=== PATIENT | male | born 1970 | race Caucasian/White ===

== ENCOUNTER 2020-10-25 20:51 | Emergency (ER) | payer MEDICAID ==
[~2020-10-25] VITALS: Ht 170.2 cm; Wt 133.8 kg
--- NOTE | 2020-10-25 20:55 | NUR ---
PT TO BED 7 FOR EVALUATION.
--- NOTE | 2020-10-25 20:59 | NUR ---
PT AAO AND AMBULATORY REPORTING THAT HE HAD A SYNCOPAL EPISODE TODAY IN THE RESTROOM. PT REPORTS THAT HE DOES NOT HAVE ANY MEDICAL PROBLEMS AND THAT HE WAS FEELING FINE ALL DAY. PT DENIES ANY PAIN CURRENTLY.
[2020-10-25 21:00] VITALS: BP_SYST 140
--- NOTE | 2020-10-25 21:01 | NUR ---
Dr. Gonzales bedside for pt eval
--- NOTE | 2020-10-25 21:02 | NUR ---
EKG performed at BS by Karin LO. Physician given copy of EKG for review.
[2020-10-25] MEDS ORDERED: NACL 0.9% 1,000 ML IV ONE (21:30)
[2020-10-25 21:43] LABS: BASOPHILS % (AUTO) 0.8 % (0.0-2.0); EOSINOPHILS % (AUTO) 0.5 % (0.0-4.0); HEMATOCRIT 32.4 % (36-54); HEMOGLOBIN 10.6 g/dL (14.0-18.0); LYMPHOCYTES # (AUTO) 1.5 K/uL (1.0-5.5); LYMPHOCYTES % (AUTO) 27.5 % (20.5-51.5); MEAN CORPUSCULAR HEMOGLOBIN 25 pg (27-31); MEAN CORPUSCULAR HGB CONC 33 % (32-36); MEAN CORPUSCULAR VOLUME 76 fL (79.0-98.0); MONOCYTES # (AUTO) 0.6 K/uL (0.0-1.0); MONOCYTES % (AUTO) 10.1 % (1.7-9.3); NEUTROPHILS # (AUTO) 3.4 K/uL (1.8-7.7); NEUTROPHILS % (AUTO) 61.1 % (40.0-70.0); PLATELET COUNT (AUTO) 194 K/uL (130-430); RED BLOOD CELL COUNT(AUTO) 4.28 MIL/uL (4.2-6.2); RED CELL DISTRIBUTION WIDTH 19.1 % (9.0-15.0); WHITE BLOOD COUNT (AUTO) 5.5 K/uL (4.8-10.8)
[2020-10-25 21:55] LABS: ANION GAP 9 (5-15); CALCIUM 8.2 mg/dL (8.4-11.0); CHLORIDE 92 mmol/L (98-107); CREATININE 0.88 mg/dL (0.55-1.30); GLUCOSE 102 mg/dL (70-99); POTASSIUM 3.7 mmol/L (3.5-5.1); SODIUM SERUM 127 mmol/L (136-145); UREA NITROGEN, BLOOD 4 mg/dL (8-21)
[2020-10-25 21:56] LABS: GFR AFRICAN AMERICAN 119 mL/min (>90)
[2020-10-25 22:04] LABS: ALANINE AMINOTRANSFERASE 115 U/L (12-78); ALBUMIN 3.9 g/dL (3.4-4.8); ALCOHOL, BLOOD 337 mg/dL (<10); ASPARTATE AMINOTRANSFERASE 175 U/L (10-37); TOTAL BILIRUBIN 0.5 mg/dL (0.0-1.0)
--- NOTE | 2020-10-25 22:13 | NUR ---
VSS no s/s of acute distress Resting on gurney
[2020-10-25 22:38] LABS: CREATINE KINASE MB 5.4 ng/mL (0-3.6)
--- NOTE | 2020-10-25 23:14 | NUR ---
Resting comfortable on gurney rails up
--- NOTE | 2020-10-26 | NUR ---
VSS no s/s of acute distress Resting on gurney rails up
[2020-10-26 00:19] LABS: BILIRUBIN,URINE NEGATIVE (NEGATIVE); BLOOD, URINE NEGATIVE (NEGATIVE); CLARITY/URINE CLEAR (CLEAR); COLOR,URINE YELLOW (YELLOW); GLUCOSE,URINE NEGATIVE (NEGATIVE); KETONES,URINE NEGATIVE (NEGATIVE); LEUKOCYTE ESTERASE ,URINE NEGATIVE (NEGATIVE); NITRITE, URINE NEGATIVE (NEGATIVE); PROTEIN URINE NEGATIVE (NEGATIVE); UROBILINOGEN,URINE 0.2 (0.2-1.0)
[2020-10-26 00:33] LABS: BARBITURATE, URINE NEGATIVE (NEG <=200); BENZODIAZEPINE, URINE NEGATIVE (NEG <=150); CANNABINOID, URINE NEGATIVE (NEG <=50); COCAINE, URINE NEGATIVE (NEG <=150); METHAMPHETAMINES SCREEN,URINE NEGATIVE (NEG <=500); OPIATE, URINE NEGATIVE (NEG <=100); PHENCYCLIDINE SCREEN,URINE NEGATIVE (NEG <=25); UR TRICYCLIC ANTIDEPRESSANTS NEGATIVE (NEG <=300); URINE AMPHETAMINE NEGATIVE (NEG <=500); URINE METHADONE NEGATIVE (NEG <=200); URINE OXYCODONE SCREEN NEGATIVE (NEG <=100); URINE PROPOXYPHENE SCREEN NEGATIVE (NEG <=300)
[2020-10-26 00:50] VITALS: BP_SYST 128
--- NOTE | 2020-10-26 00:50 | NUR ---
Patient given written and verbal discharge instructions and verbalizes understanding. ER MD discussed with patient the results and treatment provided. Patient in stable condition. ID arm band removed. IV catheter removed intact and dressing applied, no active bleeding. Patient educated on pain management and to follow up with PMD. Pain Scale 0/10 Opportunity for questions provided and answered.
== END 2020-10-26 00:50 | disposition home or self-care (01) ==
LOC: SED 20:51
DX: F10.10 Alcohol abuse, uncomplicated (principal)
CPT/HCPCS: 36415; 70450; 76376; 80053; 80307; 81003; 82550; 82553; 84484; 85025; 93005; 96360; 99285; G0482; J7030